=== PATIENT | male | born 1995 | race Caucasian/White ===

== ENCOUNTER 2017-02-27 10:48 | Emergency (ER) | payer OTHER ==
[~2017-02-27] VITALS: Ht 195.6 cm; Wt 143.2 kg
[2017-02-27 10:50] VITALS: BP 139/83; PULSE 49; TEMP 98
[2017-02-27] MEDS ORDERED: ZYRTEC 10MG10 MG PO (10:54)
== END 2017-02-27 12:24 | disposition home or self-care (01) ==
LOC: COL.ER 10:48
DX: S46.911A Strain of unspecified muscle, fascia and tendon at shoulder and upper arm level, right arm, initial encounter (principal); S80.211A Abrasion, right knee, initial encounter; M79.661 Pain in right lower leg; V28.4XXA Motorcycle driver injured in noncollision transport accident in traffic accident, initial encounter; Y92.410 Unspecified street and highway as the place of occurrence of the external cause